=== PATIENT | female | born 1970 | race Caucasian/White ===

== ENCOUNTER 2024-08-30 09:33 | Emergency (ER) | payer BC, SELFPAY ==
[2024-08-30 09:35] VITALS: BP 130/93; PULSE 74; RESP 20; TEMP 36; O2SAT 99
--- NOTE | 2024-08-30 10:21 | ED.GENADULT ---
HPI - General Adult General Date Seen: 08/30/24 Chief complaint: Back Injury/Pain Stated complaint: back pain Time Seen by Provider: 08/30/24 10:09 History of Present Illness HPI narrative: 54 yo F Related Data Home Medications ?Medication ?Instructions ?Recorded ?Confirmed escitalopram oxalate 10 mg tablet 10 mg PO DAILY 08/30/24 08/30/24 losartan 50 mg tablet 50 mg PO DAILY 08/30/24 08/30/24 Previous Rx's ?Medication ?Instructions ?Recorded cyclobenzaprine 10 mg tablet 10 mg PO TID PRN muscle spasm #14 08/30/24 tabs ondansetron HCl 4 mg tablet 4 mg PO Q8H PRN nausea and 08/30/24 vomiting 4 days #10 tabs oxycodone-acetaminophen 5 mg-325 1 tab PO Q6H PRN pain #14 tabs 08/30/24 mg tablet (Percocet) Allergies Allergy/AdvReac Type Severity Reaction Status Date / Time No Known Drug Allergies Allergy Verified 08/30/24 09:41 PFSH PFSH Social History Smoking Status: Current every day smoker How often do you have a drink containing alcohol: 2-3 times a week AUDIT-C Alcohol total score: 3 Non-prescribed substance use: denies use Exam Const: Vital Signs, click to edit/add: Vital Signs - 24 hr 08/30/24 09:35 Temperature 96.8 F L Pulse Rate [Pulse Oximeter] 74 Respiratory Rate 20 Blood Pressure [Ri ght Upper Arm] 130/93 H Pulse Oximetry 99 Oxygen Delivery Me thod Room Air Course Vital Signs Vital signs: Initial Vital Signs Temperature 96.8 F L 08/30/24 09:35 Temperature Source Temporal Artery Scan 08/30/24 09:35 Pulse Rate 74 08/30/24 09:35 Pulse Rhythm Regular 08/30/24 09:35 Respiratory Rate 20 08/30/24 09:35 Blood Pressure 130/93 H 08/30/24 09:35 Blood Pressure Mean 105 08/30/24 09:35 Blood Pressure Position Standing 08/30/24 09:35 Pulse Oximetry 99 08/30/24 09:35 Oxygen Delivery Method Room Air 08/30/24 09:35 Vital Signs Temperature 96.8 F L 08/30/24 09:35 Pulse Rate 74 08/30/24 09:35 Respiratory Rate 20 08/30/24 09:35 Blood Pressure 130/93 H 08/30/24 09:35 Pulse Oximetry 99 08/30/24 09:35 Oxygen Delivery Method Room Air 08/30/24 09:35 Temperature 96.8 F L 08/30/24 09:35 Pulse Rate 74 08/30/24 09:35 Respiratory Rate 20 08/30/24 09:35 Blood Pressure 130/93 H 08/30/24 09:35 Pulse Oximetry 99 08/30/24 09:35 Oxygen Delivery Method Room Air 08/30/24 09:35 Medications Administered Medications: Discontinued Medications Generic Name Dose Route Start Last Admin Trade Name Freq PRN Reason Stop Dose Admin Cyclobenzaprine HCl 10 mg 08/30/24 11:07 08/30/24 11:22 Cyclobenzaprine Hcl 10 Mg Tablet PO 08/30/24 11:08 10 mg ONCE ONE Administration Ibuprofen 600 mg 08/30/24 11:07 08/30/24 11:23 Ibuprofen 600 Mg Tablet PO 08/30/24 11:08 600 mg ONCE ONE Administration Ondansetron HCl 4 mg 08/30/24 11:07 08/30/24 11:22 Ondansetron Odt 4 Mg Tab PO 08/30/24 11:08 4 mg ONCE ONE Administration Oxycodone/Acetaminophen 1 tab 08/30/24 11:07 08/30/24 11:22 Oxycodone/Apap 5-325 Tablet PO 08/30/24 11:08 1 tab ONCE ONE Administration Medical Decision Making MDM Narrative Medical decision making narrative: This patient presented with back pain affecting her rule right lumbar paraspinous muscles and right CVA.. Broad differential considered. The patient did not sustain any trauma, therefore x-rays are not necessary due to the low likelihood of fracture or subluxation. With the flank pain I did consider possible kidney stone all of the patient's history of pain triggered by movement and changing positions would strongly suggest musculoskeletal. We did obtain urinalysis which does show hematuria, prompting a stone protocol CT scan of her abdomen/pelvis. There is no evidence for any kidney stone or hydronephrosis. Would recommend follow-up with her primary care within 1-2 weeks for repeat urinalysis to see if she has persistent hematuria and consideration for referral to Urology for further workup. o red flag symptoms to suggest MRI is indicated at this point. The patient has not had a fever, saddle/perineal anesthesia, bilateral foot numbness, or bowel or bladder dysfunction. There is no clinical evidence of cauda equina syndrome, discitis, spinal/epidural space hematoma or epidural abscess. The neurological exam is normal and the patient's symptoms seem consistent with a musculoskeletal issues and significant muscle spasm. Pain has improved with interventions in the emergency department. The patient will be discharged with pain medications to use as directed. Ice or heat to the back and stretching exercises. No heavy lifting, bending or twisting. Return if increasing pain, numbness, weakness, or bowel or bladder dysfunction. The patient was advised to schedule follow-up with their primary doctor (or return to the ER) within 2-3 days to re-assess symptoms. Return precautions reviewed and questions answered. Incidentally on the CT scan of her abdomen pelvis there is some areas that are suggestive of possible fatty infiltration of the liver. Patient needs outpatient follow-up liver MRI to further evaluate and make sure there is no malignancy. Discussed the liver lesions and the hematuria in detail with the patient and she will follow-up with her primary care provider within 1-2 weeks for recheck and to arrange further evaluation. Discussed plan of treatment for her back pain which is presumably musculoskeletal. Reviewed opiate precautions it is sedation precautions. Questions answered. Expected course of illness and precautions for return to the ER reviewed. Lab Data Labs: Lab Results 08/30/24 Range/Units 11:35 Urine Color Yellow (Yellow) Urine Appearance Slightly Cloudy A (Clear) Urine pH 5.5 (5.0-8.5) Ur Specific [place] >= 1.030 (1.000-1.030) Urine Protein Negative (Negative) Urine Glucose (UA) Negative (Negative) Urine Ketones Negative (Negative) Urine Blood 2+ A (Negative) Urine Nitrite Negative (Negative) Urine Bilirubin 1+ A (Negative) Urine Urobilinogen 0.2 (0.2-1.0) Ur Leukocyte Esterase Negative (Negative) Urine RBC 5-10 A (0-2) Urine WBC 0-2 (0-5) Ur Squamous Epith Cells Many A (None-Few) Urine Bacteria None (None) Imaging Data CT scan - abdomen: Attestation: I have reviewed the pertinent imaging results. Radiologist's impression: IMPRESSION: 1. No urinary tract calculi or urinary tract obstruction. 2. There are 2 fairly large ill-defined low-density areas in the liver. These may be focal fatty infiltration. Recommend MR abdomen without and with contrast, liver mass protocol. Discharge Plan Discharge Clinical Impression: Low back pain, Hematuria, Lesion of liver Instructions: Acute Low Back Pain (ED) Additional Instructions: As we discussed, we suspect that your back is hurting because of a muscular injury to her back. To treat this you can use Tylenol 1000 mg or ibuprofen 600 mg each dose every 6 hours as needed. Use the prescription pain killer (Percocet) or the prescription muscle relaxer (Flexeril) if needed for breakthrough pain. Use caution with Percocet or Flexeril because they both can cause dizziness, drowsiness, and can be addictive. We expect that your back should be getting better over the next 2-3 days. Avoid heavy lifting more than 5 lb or activities require a lot of bending or twisting or torso. If your back pain is not improving over the next 3 days, please recheck with your doctor or come back to the ER for recheck. If your back pain is getting worse, or if you are having other new symptoms such as numbness or pain radiating down her leg, high fever, trouble with urination, come back to the emergency room right away. Your CT scan today does not show any kidney stones. Incidentally, the CT shows 2 areas within your liver that need further check. I suspect that these areas are probably due to fatty tissue in your liver, but please talk to your regular doctor to arrange an MRI of your liver to make sure these spots are not cancerous. Also please have your doctor recheck a urine sample within 1-2 weeks to see if there is still blood in your urine. Prescriptions: New cyclobenzaprine 10 mg tablet 10 mg PO TID PRN (Reason: muscle spasm) Qty: 14 0RF oxycodone-acetaminophen [Percocet] 5-325 mg tablet 1 tab PO Q6H PRN (Reason: pain) Qty: 14 0RF ondansetron HCl 4 mg tablet 4 mg PO Q8H PRN (Reason: nausea and vomiting) 4 Days Qty: 10 0RF No Action losartan 50 mg tablet 50 mg PO DAILY escitalopram oxalate 10 mg tablet 10 mg PO DAILY Follow Up/Referrals: Lamar López PA-C [Primary Care Provider] - Stand Alone Forms: [employer] Info Instructions
--- OUTSIDE RECORDS SUMMARY | 2024-08-30 11:21 | XMS_ITS | Clinical Summary ---
Author Organization [employer] [facility] Address [place], [place] [address] Care Team Providers Care Contact Acid Plant Operator Helper Name Role Phone Lamar López Primary Care Provider Allergies No known active allergies Medications Medication Sig Dispensed Refills Start Date End Date Status escitalopram oxalate (LEXAPRO) 10 mg tabletIndications:An xiety Take 1 Tablet (10 mg) by mouth every morning. 90 Tablet 3 03/01/2024 Active losartan (COZAAR) 50 mg tabletIndications:HT N (hypertension) Take 1 Tablet (50 mg) by mouth once daily. 90 Tablet 3 03/01/2024 Active polyethylene glycol-electrolyte (GOLYTELY) 236-22.74-6.74 -5.86 gram suspensionIndication s:Encounter for screening colonoscopy Drink 2 liters the day before the procedure and 2 liters 6 hours prior to procedure. 4000 mL 04/20/2024 Active LORazepam (ATIVAN) 1 mg tabletIndications:Ge neralized anxiety disorder TAKE 1 TABLET(1 MG) BY MOUTH TWICE DAILY NEEDED FOR ANXIETY 15 Tablet 06/17/2024 Active Active Problems Problem Noted Date Diagnosed Date Pap smear for cervical cancer screening 03/17/20 Overview (03/17/2024): 02/2024 NIL/HPV Negative Plan: HPV based testing due 02/2029 Panic attacks 11/12/2017 Controlled substance agreement signed 03/21/2017 Overview (03/21/2017): Signed 08/02/16 Dr. Khadijah Cervantes /pyschiatry/ Generalized anxiety disorder 03/05/2011 Insomnia 03/05/2011 Atypical chest pain 03/05/2011 Carpal tunnel syndrome 03/05/2011 Resolved Problems Problem Noted Date Diagnosed Date Resolved Date Anxiety state, unspecified 03/05/2011 0 03/05/2011 Encounters Date Type Department Care Team Description 06/17/2024 Refill [facility] [address] [place] [address] Lamar López PA Refill Request (Lorazepam) from Last 3 Months Immunizations Name Administration Dates Next Due Td (Age >=7 Years) 10/20/1994 Tdap 01/10/2015 Family History Medical History Relation Name Comments Heart Disease Father 2 heart attack s Heart Disease Mother CHF Good Health Sister 1 Good Health Sister 2 Good Health Sister 3 Relation Name Status Comments Father Alive Mother Alive Sister 1 Alive Sister 2 Alive Sister 3 Alive Social History Tobacco Use Types Packs/Day Years Used Date Smoking Tobacco: Every Day Cigarettes 1 23 Started: 03/08/1989; Last attempted to quit: 03/08/2012 Smokeless Tobacco: Never Tobacco Cessation:Ready to Q uit: No; Counseling Given: Yes Alcohol Use Standard Drinks/Week Comments Yes 6.7 (1 standard drink = 0.6 oz p ure alcohol) on occasion PHQ-2 Answer Date Recorded PHQ-2 Score 2 10/06/2019 Social Connections Answer Date Recorded Do you often feel lonely or isolated from those around you? 0 03/01/2024 Financial Resource Strain Answer Date R ecorded Difficulty of Paying Living Expenses 3 03/01/2024 Difficulty of Paying Living Expenses Not on file 03/01/2024 Food Insecurity Answer Date Recorded Do you worry your food will run out before you are able to buy more? 1 03/01/2024 Transportation Needs Answer Date Record ed Does lack of transportation keep you from medica l appointments? 1 03/01/2024 Does lack of transportation keep you from work, meetings or getting things that you need? 1 03/01/2024 Housing Stability Answer Date Recorded What is your housing situation today? 1 03/01/2024 Sex and Gender Information Value Date Recorded Sex Assigned at Not on file Gender Identity Not on file Sexual Orientation Not on file Obstetrics History Last Filed Vital Signs Vital Sign Reading Time Taken Comments Blood Pressure 126/88 03/01/2024 3:20 PM CDT Pulse 66 03/01/2024 3:20 PM CDT Temperature 36.7 ??C (98 ??F) 10/06/2019 3:33 PM PLANT PROTECTION SUPERINTENDENT Respiratory Rate 20 12/10/2017 6:04 PM PLANT PROTECTION SUPERINTENDENT Oxygen Saturation 98% 10/06/2019 3:33 PM PLANT PROTECTION SUPERINTENDENT Inhaled Oxygen Concentration - - Weight 64 kg (141 lb) 03/01/2024 3:20 PM CDT Height 162.6 cm (5' 4) 03/01/2024 3:20 PM CDT Body Mass Index 24.2 03/01/2024 3:20 PM CDT Plan of Treatment Health Maintenance Due Date Last Done Comments Pneumococcal series for age 6-64 (1 of 2 - PCV) 1977 Colonoscopy through age 75 2016 Mammogram for age 45-75 2016 02/16/2013, 02/16 Depression screening for age 12+ 10/06/2020 10/06/2019, 08/21/2018, 08/03/2018, Additional history exists Zoster (shingles) series for age 50+ (1 of 2) [address] (for lung CA) ag e 50-80 03/27/2024 03/27/2023 COVID-19 vaccine series ( season) 2024 Influenza for age 50-64 06/20/2024 Tetanus booster 01/10/2025 01/10/2015, 02/17 (Postponed), 10/20/1994 BMI (ht and wt on same day) for age 18+ 03/01/2025 03/01/2024, 07/30/2021, 10/06/2019, Additional history exists Lipids for age 45-75 03/01/2029 03/01/2024, 10/07/2022, 07/30/2021, Additional history exists Pap test for age 21-65 03/01/2029 , 03/01/2024, 10/06/2019, Additional history exists Tdap Completed 01/10/2015 HIV for age 15-65 Completed 10/06/2019 Hepatitis C screening for ag e 18-79 Completed 10/06/2019 Procedures Procedure Name Priority Date/Time Associated Diagnosis Comments LIPID PANEL W REFLEX MEASURED LDL Routine 03/01/2024 4:25 PM CDT Screening cholesterol level HPV HIGH RISK Routine 03/01/2024 3:49 PM CDT Screening for cervical cancer CT CHEST SCREENING LOW DOSE WO CONTRAST Routine 03/27/2023 3:25 PM CDT Encounter for screening for lung cancer ANTI HIV 1/2 Routine 10/06/2019 4:24 PM PLANT [employer]CTION SUPERINTENDENT Screen for STD (sexually transmitted disease) ANTI HCV Routine 10/06/2019 4:24 PM PLANT [employer] SUPERINTENDENT Screen for STD (sexually transmitted disease) XR MAMMO BILAT SCREEN FFDM (IA) Routine 02/16/2013 8:51 AM CDT Other screening mammogram from Last 3 Months or Most Recently Relevant to Health Maintenance Results * LIPID PANEL W REFLEX MEASURED LDL (03/01/2024 4:25 PM CDT) CHOLESTEROL,TOTAL 182 100 - 199 mg/dL 03/02/2024 3:36 PM CDT [facility] Comment: Cholesterol, Total Reference Ranges Desirable <200 mg/dL Borderline 200-239 mg/dL High >=240 mg/dL TRIGLYCERIDES 86 <150 mg/dL 03/02/2024 3:36 PM CDT [facility] HDL CHOLESTEROL 80 >40 mg/dL 3:36 PM CDT [facility] NON-HDL CHOLESTEROL 102 <145 mg/dl 03/02/2024 3:36 PM CDT [facility] CHOL/HDL RATIO 2.28 <4.50 03/02/2024 3:36 PM CDT [facility] LDL CHOLESTEROL 85 <=130 mg/dL 03/02/2024 3:36 PM CDT [facility] VLDL CHOLESTEROL 17 <=30 mg/dL 03/02/2024 3:36 PM CDT [facility] PROVIDER ORDERED STATUS RANDOM 03/02/2024 3:36 PM CDT [facility] Blood BLOOD SPECIMEN / Unknown Venipuncture / Unknown 03/01/2024 4:25 PM CDT 03/01/2024 4:27 PM CDT Lamar NORRIS CHEMISTRY [facility] [address] [place] [address], * HPV HIGH RISK (03/01/2024 3:49 PM CDT) TYPE 16 Negative Negative 03/04/2024 1:58 PM CDT [facility] TYPE 18 Negative Negative 03/04/2024 1:58 PM CDT [facility] OTHER HIGH RISK TYPES Negative Negative 03/04/2024 1:58 PM CDT [facility] Other (Cervical) Non-Blood / Unknown 03/01/2024 3:49 PM CDT 03/02/2024 4:02 PM CDT Narrative [facility] - 03/04/2024 1:58 PM CDT HPV types 16, 18, 31, 33, 35, 39, 45, 51, 52, 56, 58, 59, 66 and 68 DNA were undetectable or below the pre-set threshold. Methodology: GreenGar Yair 4800 HPV Test Lamar NORRIS MICROBIOLOGY Performing Organization Address [facility] Co de Phone Number [facility] [address] [place] [address], * CT CHEST SCREENING LOW DOSE WO CONTRAST [[id number]] -- NOTE: to meet CMS requirements, this order ONLYto be placed by the person completing the Shared Decision Making Visit (03/27/2023 3:25 PM CDT) Anatomical Region Laterality Modality Computed Tomogra phy Impressions 03/28/2023 10:08 AM CDT 1. Negative for lung cancer screening purposes. 2. Indeterminate low-density left hepatic lobe lesions. LUNG-RADS CATEGORY 1: Negative. RADIOLOGIST RECOMMENDATION: Continue annual screening with low-dose CT chest in [address] abdomen with contrast recommended for further evaluation. Please note that all CT scans at this facility use dose modulation, iterative reconstruction and/or weight-based dosing when appropriate to reduce radiation dose to as low as reasonably achievable. ?? Dictated by: Jose Ramon Arellano MD @03/28/2023 6:07:17 AM / CRL:jj Narrative 03/28/2023 10:08 AM CDT For Patients: As a result of the Cures Act, medical imaging exams and procedure reports are released immediately into your electronic medical record. ??You may view this report before your referring provider. ?? If you have questions, please contact your health care provider. CT CHEST SCREENING LOW-DOSE WITHOUT CONTRAST, 03/27/2023 INDICATION: Lung cancer screening. History of smoking. High-risk patient with greater than 20 pack-year smoking history. TECHNIQUE: Low-dose lung cancer screening non-contrast CT chest. Dose reduction techniques were used. COMPARISON: None. FINDINGS: NODULES: None. LUNGS AND PLEURA: No infiltrate or edema. No effusion or pneumothorax. MEDIASTINUM: No adenopathy. CORONARY ARTERY CALCIFICATION: None. LIMITED UPPER ABDOMEN: Hypodense lesion within the left hepatic lobe measuring 2.5 cm. Additional smaller lesions suspected more inferiorly within the left hepatic lobe, incompletely visualized. MUSCULOSKELETAL: Scoliotic deformity. No fracture. Lamar NORRIS CT * ANTI HCV (10/06/2019 4:24 PM PLANT PROTECTION SUPERINTENDENT) HEPATITIS C ANTIBODY Non-React janis Non-React janis 10/07/2019 2:02 PM PLANT PROTECTION SUPERINTENDENT [facility] [email or web address] Comment:Antibodies to HCV no t detected; does not exclude the possibility of exposure to HCV. Blood BLOOD SPECIMEN / Unknown Venipuncture / Unknown 10/06/2019 4:24 PM PLANT PROTECTION SUPERINTENDENT 10/06/2019 4:25 PM PLANT PROTECTION SUPERINTENDENT Lamar NORRIS SEND OUTS [facility] [address] [place] [address], [place] * ANTI HIV 1/2 (10/06/2019 4:24 PM PLANT PROTECTION SUPERINTENDENT) HIV-1/HIV-2 ANTIBODY Non-Reacti ve Non-Reacti ve 10/07/2019 2:08 PM PLANT PROTECTION SUPERINTENDENT [facility] Comment:HIV-1 p24 and HIV-1/ HIV-2 Ab not detected. Blood BLOOD SPECIMEN / Unknown Venipuncture / Unknown 10/06/2019 4:24 PM PLANT PROTECTION SUPERINTENDENT 10/06/2019 4:25 PM PLANT PROTECTION SUPERINTENDENT Lamar NORRIS SEND OUTS [facility] [address] [place] [address], [place] * XR MAMMO BILAT SCREEN FFDM (02/16/2013 8:51 AM CDT) Anatomical Region Laterality Modality BREASTS, Breast Left, Breast Right Bilateral Mammography Impressions 02/16/2013 12:19 PM CDT ??There is no radiographic evidence for malignancy. ??Recommend annual mammograms. A lay language report of this examination will be provided to the patient. MAMMOGRAM ASSESSMENT: ??ACR 1 Negative Narrative 02/16/2013 12:19 PM CDT XR MAMMO BILAT SCREEN FFDM [G0202.0] CLINICAL HISTORY: ??This is an asymptomatic 42 y.o. patient. INDICATION FOR EXAM: Mammogram Screening. TECHNIQUE: CC & MLO views were obtained. ??This digital study was evaluated with the assistance of Computer-Aided Detection. ?? COMPARISON FILM: This is a baseline study. FINDINGS: ??Mammographically, the breast tissue is heterogeneously dense, which could obscure detection of small masses (approximately 51% - 75% glandular). There are no dominant masses, suspicious micro calcifications or areas of architectural distortion. Procedure Note Anastacio Musa MD - 02/16/2013 XR MAMMO BILAT SCREEN FFDM [G0202.0] CLINICAL HISTORY: This is an asymptomatic 42 y.o. patient. INDICATION FOR EXAM: Mammogram Screening. TECHNIQUE: CC & MLO views were obtained. This digital study was evaluatedwith the assistance of Computer-Aided Detection. COMPARISON FILM: This is a baseline study. FINDINGS: Mammographically, the breast tissue is heterogeneously dense,which could obscure detection of small masses (approximately 51% - 75%glandular). There are no dominant masses, suspicious micro calcificationsor areas of architectural distortion. IMPRESSION: There is no radiographic evidence for malignancy. Recommendannual mammograms. A lay language report of this examination will be provided to the patient. MAMMOGRAM ASSESSMENT: ACR 1 Negative Lamar NORRIS MAMMO from Last 3 Months or Most Recently Relevant to Health Maintenance Care Teams Contact Acid Plant Operator Helper Relationship Specialty Start Date End Date Lamar López PA [address] [place] [address] PCP - General Family Practice 11/15/13
--- OUTSIDE RECORDS SUMMARY | 2024-08-30 11:21 | XMS_ITS | Continuity of Care Document ---
Author Organization [facility] Address [address] [place] [address] Phone Care Team Providers Care Hack Driver Name Role Phone Unavailable Unavailable Unavailable Procedures Procedure Date Office/outpatient visit,jose acuña 2009 X-ray exam of total spine Advance Directives Directive Yes / No Effective Date File Name No Information Encounters Encounter Description Practice Location Reason(s) For Visit Diagnoses Date Provider Providers Copied on Encounter Office/outpat ient visit,arianne, [facility] [place] [facility], [address], [place], [address], [place] tel:[phone] [facility] No Information 0 No Information Family History Family Member Type Diagnosis Age At Onset No Information Payers Payer name Insurance type Covered alliance party ID Authoriza tidevonte(s) Kevin WILSON [id number] Social History Type Description Quantity Date Captured Comments Sex Female Smoking Status No Information Vital Signs Date / Time: Height Weight BMI Pulse Rate Blood Pressure Temperature Respiratory Rate Body Surface Area Head Circumference Head Circ. Percentile Wt./[place]. Percentile BMI percentile Pulse Ox Inhaled Ox 8:47 AM 63.80 in 80.880 kg (178.00 lbs) 30.8 5 kg/m eter (2) Chief Complaint And Reason For Visit No Information Reason For Referral Reason For Referral No Information History Of Present Illness Encounter Date Complaint History Of Prese nt Illness No Information Functional Status Date Functional Assessmen t No Information Instructions Date Instruction Additional Infor mation No Information Assessments Type Assessment Date No Information Patient Care Teams Name Effective Dates (start - stop) Status Members No Information
[2024-08-30] MEDS: OxyCODONE/APAP 5-325 TABLET 1 TAB PO (11:22)
[2024-08-30] MEDS: ONDANSETRON ODT 4 MG TAB PO (11:22)
[2024-08-30] MEDS: CYCLOBENZAPRINE HCL 10 MG TABLET PO (11:22)
--- OUTSIDE RECORDS SUMMARY | 2024-08-30 11:22 | XMS_ITS | Continuity of Care Document ---
Author Organization [facility] Address [address] [place] [address] Phone Care Team Providers Care Division Chair Name Role Phone Unavailable Unavailable Unavailable Procedures Procedure Date Office/outpatient visit,jose acuña 2009 X-ray exam of total spine Advance Directives Directive Yes / No Effective Date File Name No Information Encounters Encounter Description Practice Location Reason(s) For Visit Diagnoses Date Provider Providers Copied on Encounter Office/outpat [place] visit[place] [facility], [address], [place], [address], [place] tel:[phone] [facility] No Information 0 No Information Family History Family Member Type Diagnosis Age At Onset No Information Payers Payer name Insurance type Covered libertarian ID Authoriza tidevonte(s) Kevin WILSON [id number] Social History Type Description Quantity Date Captured [...]
[2024-08-30] MEDS: IBUPROFEN 600 MG TABLET PO (11:23)
[2024-08-30 11:42] LABS: Appearance Urine Slightly Cloudy (Clear); Bilirubin Urine 1+ (Negative); Blood Urine 2+ (Negative); Color Urine Yellow (Yellow); Glucose Urine Negative (Negative); Ketones Urine Negative (Negative); Leukocyte Esterase Urine Negative (Negative); Nitrite Urine Negative (Negative); Protein Urine Negative (Negative); Specific Gravity Urine >= 1.030 (1.000-1.030); Urobilinogen Urine 0.2 (0.2-1.0); pH Urine 5.5 (5.0-8.5)
[2024-08-30 11:53] LABS: Squamous Epithelial Cell Urine Many (None-Few); WBC Urine 0-2 (0-5)
--- NOTE | 2024-08-30 12:01 | CRLHL7_ITS ---
For Patients: As a result of the Century Cures Act, medical imaging exams and procedure reports are released immediately into your electronic medical record. You may view this report before your referring provider. If you have questions, please contact your health care provider. INDICATION: Right lower back and flank pain with hematuria. COMPARISON: None. TECHNIQUE: CT of the abdomen and pelvis without intravenous contrast. Multiplanar axial, coronal, and sagittal reformats were reconstructed. Contrast: None. FINDINGS: Lung bases: Normal. Liver: There is a somewhat ill-defined geographic area of hypodensity in the medial left lobe that measures 2.3 x 1.6 cm on series 2, image 30. There is a similar area slightly more inferiorly in segment IV that measures about 2.3 x 2.0 cm. Gallbladder and bile ducts: Gallbladder is not distended. Pancreas: Normal. Spleen: Normal. Adrenal glands: Normal. Kidneys: Normal renal size and position. No renal cyst or mass seen on noncontrast imaging. No calculi. No urinary tract dilation. Urinary bladder: Empty. Pelvis: Several pelvic phleboliths. None are in the distribution of the ureters. Vessels: Few atherosclerotic plaques. Bowel: No dilated or inflamed bowel. Normal appendix. Moderate right colon stool burden. Lymph nodes: No adenopathy. Peritoneum: No ascites. Abdominal wall: No hernia. Bones: Scoliosis. No fractures. No focal worrisome bone lesions. IMPRESSION: 1. No urinary tract calculi or urinary tract obstruction. 2. There are 2 fairly large ill-defined low-density areas in the liver. These may be focal fatty infiltration. Recommend MR abdomen without and with contrast, liver mass protocol. Please note that all CT scans at this facility use dose modulation, iterative reconstruction, and/or weight-based dosing when appropriate to reduce radiation dose to as low as reasonably achievable. Dictated by Brandy Abarca MD @ 08/30/2024 12:29:45 PM (Electronically Signed)
--- NOTE | 2024-09-12 16:00 | ED_ITS ---
HPI - General Adult General Date Seen: 08/30/24 Chief complaint: Back Injury/Pain Stated complaint: back pain Time Seen by Provider: 08/30/24 10:09 History of Present Illness HPI narrative: This note is an addendum to my ER note from 08/30/24. History of present illness, this is a 51 or 4-year-old female presenting to the ER for evaluation of low back pain. She was laying in bed and had a lot of pain in her low back when she tried to get up and get out of bed. Her back was tensed up and spasming. She had pain in both of her lumbar paraspinous muscles and into her right flank. She tried taking some oxycodone that she had at home, but did not get much better. She has no recent falls. She does have a history of scoliosis but no other back problems. Urination has been normal. No numbness or weakness in her legs. Related Data Home Medications ?Medication ?Instructions ?Recorded ?Confirmed escitalopram oxalate 10 mg tablet 10 mg PO DAILY 08/30/24 08/30/24 losartan 50 mg tablet 50 mg PO DAILY 08/30/24 08/30/24 Previous Rx's ?Medication ?Instructions ?Recorded cyclobenzaprine 10 mg tablet 10 mg PO TID PRN muscle spasm #14 08/30/24 tabs ondansetron HCl 4 mg tablet 4 mg PO Q8H PRN nausea and 08/30/24 vomiting 4 days #10 tabs oxycodone-acetaminophen 5 mg-325 1 tab PO Q6H PRN pain #14 tabs 08/30/24 mg tablet (Percocet) Allergies Allergy/AdvReac Type Severity Reaction Status Date / Time No Known Drug Allergies Allergy Verified 08/30/24 09:41 [facility] Social History Smoking Status: Current every day smoker How often do you have a drink containing alcohol: 2-3 times a week AUDIT-C Alcohol total score: 3 Non-prescribed substance use: denies use Exam Narrative: Exam Narrative: Constitutional: Appears well-developed and well-nourished. Uncomfortable but Non-toxic appearing. HENT: Head: Atraumatic. No signs of injury. Nose: No nasal discharge. Mouth/Throat: Mucous membranes are moist. Pharynx is normal. Tonsils symmetric. Uvula midline. Airway patent. Eyes: Conjunctivae normal and EOM are normal. Pupils are equal, round, and reactive to light. Right eye exhibits no discharge. Left eye exhibits no discharge. No icterus. Neck: Normal range of motion. Neck supple. No adenopathy. No stridor. Cardiovascular: Normal rate and regular rhythm. No murmur heard. No murmurs, rubs, or gallops. Brisk capillary refill Pulmonary/Chest: Effort normal. No stridor. No respiratory distress. No wheezes.No rhonchi. No rales. Abdominal: Soft. Bowel sounds are normal. No distension. No mass. There is no tenderness. There is no rebound and no guarding. Musculoskeletal: Diffuse tenderness in her low back including the right flank without any midline point tenderness or step-off. No bruising. Pelvis is stable. Normal range of motion. No edema. No tenderness. No deformity. Neurological: Alert. Normal strength. No cranial nerve deficit or sensory deficit. Coordination normal. GCS eye subscore is 4. GCS verbal subscore is 5. GCS motor subscore is 6. Skin: Skin is warm. No rash noted. Course Vital Signs Vital signs: Initial Vital Signs Temperature 96.8 F L 08/30/24 09:35 Temperature Source Temporal Artery Scan 08/30/24 09:35 Pulse Rate 74 08/30/24 09:35 Pulse Rhythm Regular 08/30/24 09:35 Respiratory Rate 20 08/30/24 09:35 Blood Pressure 130/93 H 08/30/24 09:35 Blood Pressure Mean 105 08/30/24 09:35 Blood Pressure Position Standing 08/30/24 09:35 Pulse Oximetry 99 08/30/24 09:35 Oxygen Delivery Method Room Air 08/30/24 09:35 Vital Signs Temperature 96.8 F L 08/30/24 09:35 Pulse Rate 74 08/30/24 09:35 Respiratory Rate 20 08/30/24 09:35 Blood Pressure 130/93 H 08/30/24 09:35 Pulse Oximetry 99 08/30/24 09:35 Oxygen Delivery Method Room Air 08/30/24 09:35 Temperature 96.8 F L 08/30/24 09:35 Pulse Rate 74 08/30/24 09:35 Respiratory Rate 20 08/30/24 09:35 Blood Pressure 130/93 H 08/30/24 09:35 Pulse Oximetry 99 08/30/24 09:35 Oxygen Delivery Method Room Air 08/30/24 09:35 Medications Administered Medications: Discontinued Medications Generic Name Dose Route Start Last Admin Trade Name Macarena MENCHACA Reason Stop Dose Admin Cyclobenzaprine HCl 10 mg 08/30/24 11:07 08/30/24 11:22 Cyclobenzaprine Hcl 10 Mg Tablet PO 08/30/24 11:08 10 mg ONCE ONE Administration Ibuprofen 600 mg 08/30/24 11:07 08/30/24 11:23 Ibuprofen 600 Mg Tablet PO 08/30/24 11:08 600 mg ONCE ONE Administration Ondansetron HCl 4 mg 08/30/24 11:07 08/30/24 11:22 Ondansetron Odt 4 Mg Tab PO 08/30/24 11:08 4 mg ONCE ONE Administration Oxycodone/Acetaminophen 1 tab 08/30/24 11:07 08/30/24 11:22 Oxycodone/Apap 5-325 Tablet PO 08/30/24 11:08 1 tab ONCE ONE Administration Medical Decision Making MDM Narrative Medical decision making narrative: Please see my previous note from 08/30 for details of the MDM. Lab Data Labs: Lab Results 08/30/24 Range/Units 11:35 Urine Color Yellow (Yellow) Urine Appearance Slightly Cloudy A (Clear) Urine pH 5.5 (5.0-8.5) Ur Specific Ovalo >= 1.030 (1.000-1.030) Urine Protein Negative (Negative) Urine Glucose (UA) Negative (Negative) Urine Ketones Negative (Negative) Urine Blood 2+ A (Negative) Urine Nitrite Negative (Negative) Urine Bilirubin 1+ A (Negative) Urine Urobilinogen 0.2 (0.2-1.0) Ur Leukocyte Esterase Negative (Negative) Urine RBC 5-10 A (0-2) Urine WBC 0-2 (0-5) Ur Squamous Epith Cells Many A (None-Few) Urine Bacteria None (None) Discharge Plan Discharge Clinical Impression: Low back pain, Hematuria, Lesion of liver Patient Disposition: Home, Self-Care Condition: Stable Instructions: Acute Low Back Pain (ED) Additional Instructions: As we discussed, we suspect that your back is hurting because of a muscular injury to her back. To treat this you can use Tylenol 1000 mg or ibuprofen 600 mg each dose every 6 hours as needed. Use the prescription pain killer (Percocet) or the prescription muscle relaxer (Flexeril) if needed for breakthrough pain. Use caution with Percocet or Flexeril because they both can cause dizziness, drowsiness, and can be addictive. We expect that your back should be getting better over the next 2-3 days. Avoid heavy lifting more than 5 lb or activities require a lot of bending or twisting or torso. If your back pain is not improving over the next 3 days, please recheck with your doctor or come back to the ER for recheck. If your back pain is getting worse, or if you are having other new symptoms such as numbness or pain radiating down her leg, high fever, trouble with urination, come back to the emergency room right away. Your CT scan today does not show any kidney stones. Incidentally, the CT shows 2 areas within your liver that need further check. I suspect that these areas are probably due to fatty tissue in your liver, but please talk to your regular doctor to arrange an MRI of your liver to make sure these spots are not cancerous. Also please have your doctor recheck a urine sample within 1-2 weeks to see if there is still blood in your urine. Prescriptions: New cyclobenzaprine 10 mg tablet 10 mg PO TID PRN (Reason: muscle spasm) Qty: 14 0RF oxycodone-acetaminophen [Percocet] 5-325 mg tablet 1 tab PO Q6H PRN (Reason: pain) Qty: 14 0RF ondansetron HCl 4 mg tablet 4 mg PO Q8H PRN (Reason: nausea and vomiting) 4 Days Qty: 10 0RF No Action losartan 50 mg tablet 50 mg PO DAILY escitalopram oxalate 10 mg tablet 10 mg PO DAILY Follow Up/Referrals: Lamar López PA-C [Primary Care Provider] - Stand Alone Forms: [employer] Info Instructions
== END 2024-08-30 13:02 | disposition home or self-care (01) ==
PROVIDERS: Emergency Provider Emergency Medicine; PCP Physician Assistant Medical
DX: M54.50 Low back pain, unspecified (principal); R31.9 Hematuria, unspecified
CPT/HCPCS: 74176; 81001; 99283; 99284; A9270